=== PATIENT | female | born 1950 | race Caucasian/White ===

== ENCOUNTER 2017-03-03 14:58 | Emergency (ER) | payer OTHER ==
[2017-03-03 15:04] VITALS: BMI 26.1
--- NOTE | 2017-03-03 15:25 | PDOC ---
History of Present Illness - General Chief Complaint: Respiratory Stated Complaint: SOB Time Seen by Provider: 03/03/17 15:22 - History of Present Illness Initial Comments: 03/03/17 16:59 Ms. Anjana Candelario is a 66 yo female with a significant past medical history of HTN, DM, and Asthma who presents to the emergency department with a 2 week history of difficulty breathing with frequent cough and feeling like her "chest itches." She says she sometimes coughs of phlegm and endorses headache as well. The patient denies chest pain and dizziness. Denies fever, chills, nausea, vomit , diarrhea and constipation. Denies dysuria, frequency, urgency and hematuria. Allergies: NKDA Timing/Duration: unsure Past History - Past Medical History Allergies/Adverse Reactions: Allergies Allergy/AdvReac Type Severity Reaction Status Date / Time No Known Allergies Allergy Verified 03/03/17 15:04 Home Medications: Ambulatory Orders Albuterol Sulfate [Proair Hfa -] 1 - 2 inh PO QID 12/20/14 Aspirin [ASA -] 81 mg PO DAILY 12/20/14 Budesonide/Formeterol Fumarate [SYMBICORT 160/4.5mcg -] 1 inh PO BID 12/20/14 Esomeprazole Mag Trihydrate [Nexium] 40 mg PO DAILY 12/20/14 Losartan Potassium 50 mg PO DAILY 12/20/14 Montelukast Na [Singulair -] 10 mg PO HS 12/20/14 Pravastatin Sodium 20 mg PO DAILY 12/20/14 Asthma: Yes Diabetes: Yes HTN: Yes Hypercholesterolemia: Yes - Suicide/Smoking/Psychosocial Hx Smoking History: Never smoked Hx Alcohol Use: No Drug/Substance Use Hx: No Substance Use Type: None Review of Systems - Review of Systems Comments:: 03/03/17 16:59 GENERAL/CONSTITUTIONAL: No fever or chills. No weakness. HEAD, EYES, EARS, NOSE AND THROAT: No change in vision. No ear pain or discharge. No sore throat. CARDIOVASCULAR: +2 weeks of shortness of breath RESPIRATORY: +2 weeks of cough, no wheezing, or hemoptysis. GASTROINTESTINAL: No nausea, vomiting, diarrhea or constipation. GENITOURINARY: No dysuria, frequency, or change in urination. MUSCULOSKELETAL: No joint or muscle swelling or pain. No neck or back pain. SKIN: No rash NEUROLOGIC: No headache, vertigo, loss of consciousness, or change in strength/ sensation. ENDOCRINE: No increased thirst. No abnormal weight change HEMATOLOGIC/LYMPHATIC: No anemia, easy bleeding, or history of blood clots. ALLERGIC/IMMUNOLOGIC: No hives or skin allergy. *Physical Exam - Vital Signs Last Vital Signs Temp Pulse Resp BP Pulse Ox 98.4 F 90 20 143/77 97 03/03/17 15:00 03/03/17 15:00 03/03/17 15:00 03/03/17 15:00 03/03/17 15:00 - Physical Exam Comments: 03/03/17 16:59 GENERAL: Awake, alert, and fully oriented, in no acute distress HEAD: No signs of trauma, normocephalic, atraumatic EYES: PERRLA, EOMI, sclera anicteric, conjunctiva clear ENT: Auricles normal inspection, hearing grossly normal, nares patent, oropharynx clear without exudates. Moist mucosa NECK: Normal ROM, supple, no lymphadenopathy, JVD, or masses LUNGS: +Minimal dysphonia appreciated. No distress, speaks full sentences, clear to auscultation bilaterally HEART: Regular rate and rhythm, normal S1 and S2, no murmurs, rubs or gallops, peripheral pulses normal and equal bilaterally. ABDOMEN: Soft, nontender, normoactive bowel sounds. No guarding, no rebound. No masses EXTREMITIES: Normal inspection, Normal range of motion, no edema. No clubbing or cyanosis. NEUROLOGICAL: Cranial nerves II through XII grossly intact. Normal speech, normal gait, no focal sensorimotor deficits SKIN: Warm, Dry, normal turgor, no rashes or lesions noted. Medical Decision Making - Medical Decision Making 03/03/17 17:45 Patient presents with symptoms of 2 weeks of coughing and reports difficulty breathing. Unclear whether she was sent by respiratory or her PCP but patient presented with prescription from PCP: Dasilva for tensilon pearls, a z-pack and robitussen. Upon discussion with patient quickly apparent she is able to speak long sentences without any problems. Dry cough observed during exam. EKG negative - normal sinus rate/rhythm, normal access, normal interval. Chest x-ray negative for any fluid collection, pt found to have bronchitis. Treated patient with duoneb for symptomatic relief, will d/c to home with instructions to follow-up as needed with PCP. *DC/Admit/Observation/Transfer Diagnosis at time of Disposition: Bronchitis - Discharge Dispostion Disposition: HOME - Patient Instructions Printed Discharge Instructions: DI for Acute Bronchitis Print Language: SAMI
--- NOTE | 2017-03-03 16:12 | PDOC ---
Attending Attestation - HPI HPI: 03/03/17 17:37 Patient is a 66 year old female, with a significant past medical history of brain aneurysm(2005), subdural hematoma(2006), asthma, hypertension, hyperlipidemia, and diabetes, who presents to the emergency department complaining of sore throat, cough, and chest tightness for approximately 3 weeks. Patient reports visiting her PCP Dr. Dasilva earlier today, where she was prescribed antibiotics due to her recent history of cough productive of white/ yellow sputum. 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 Since then patient reports associated chest tightness, but denies any diaphoresis, palpitations, or lower extremity edema. Patient reports a headache, but denies any dizziness, fever, or chills. Patient denies any recent travel or sick contacts. Allergies: NKDA PCP: Dr. Dasilva Engraver Machine: Dr. Hardy - Medical Decision Making 03/03/17 17:37 Documentation prepared by Nurys Mo, acting as medical microbiologist for Vince Cho MD. <Nurys Mo - Last Filed: 03/03/17 17:37> - Resident Resident Name: Dejuan Gomez - ED Attending Attestation I have performed the following: I have examined & evaluated the patient, The case was reviewed & discussed with the resident, I agree w/resident's findings & plan, Exceptions are as noted - Physicial Exam PE: 03/03/17 17:48 Patient is awake and alert, afebrile, normotensive, with oxygen saturation of 97 % on room air; nc, atr; + b/l frontal sinus ttp perrla, eomi cta + disphonia; no stridor rrr no petechiae - Medical Decision Making 03/03/17 18:34 66-year-old female with history of hypertension, diabetes and asthma presents to the ER with signs and symptoms of acute bronchitis. On initial evaluation, patient is nontoxic appearing, with normal stable vital signs, without evidence of respiratory distress chest x-ray reveals no evidence of infiltrate or effusion. There is no evidence of cardiomegaly. Patient does display mild dysphonia but I do not suspect upper airway obstruction. Patient has already been prescribed a Z-Phil and anti-tussive meds by the PMD. Will advise outpatient follow-up with ENT as planned. Will discharge. <Vince Cho - Last Filed: 03/03/17 18:37>
[2017-03-03] MEDS ORDERED: ALBUTEROL SO4 2.5/IPRATROPIUM 0.5 INH SOL 3 ML VIAL.NEB. NEB ONE (17:15)
[2017-03-03 18:54] VITALS: BP 142/78; PULSE 78; TEMP 98.5
--- NOTE | 2017-03-04 14:11 | EKG ---
Test Reason : Blood Pressure : / mmHG Vent. Rate : 085 BPM Atrial Rate : 085 BPM P-R Int : 150 ms QRS Dur : 074 ms QT Int : 360 ms P-R-T Axes : 054 035 018 degrees QTc Int : 428 ms NORMAL SINUS RHYTHM WITH SINUS ARRHYTHMIA NONSPECIFIC ST ABNORMALITY ABNORMAL ECG WHEN COMPARED WITH ECG OF 20-DEC-2014 13:03, NO SIGNIFICANT CHANGE WAS FOUND Confirmed by MARCIA OSMAN MD ([id number]) on 03/04/2017 2:11:02 PM Referred By: Confirmed By:MARCIA OSMAN MD
== END 2017-03-03 18:54 | disposition home or self-care (01) ==
LOC: JER 14:58
PROC: 3E0F7GC Introduction of Other Therapeutic Substance into Respiratory Tract, Via Natural or Artificial Opening (ICD-10-PCS; principal; 2017-03-03)
DX: J20.9 Acute bronchitis, unspecified (principal); I10 Essential (primary) hypertension; E11.9 Type 2 diabetes mellitus without complications; E78.5 Hyperlipidemia, unspecified; J45.909 Unspecified asthma, uncomplicated; Z79.82 Long term (current) use of aspirin; Z86.79 Personal history of other diseases of the circulatory system
CPT/HCPCS: 71020-TC; 93005; 93010; 94640; 99282-25

== ENCOUNTER 2018-08-14 11:54 | Emergency (ER) | payer OTHER ==
[2018-08-14 12:06] VITALS: BP 143/76; PULSE 98; TEMP 98.8; BMI 25.8
--- NOTE | 2018-08-14 12:52 | PDOC ---
History of Present Illness - General Chief Complaint: Respiratory Stated Complaint: COLD SYMPTOMS Time Seen by Provider: 08/14/18 12:39 History Source: Patient, Family - History of Present Illness Timing/Duration: reports: other Past History - Past Medical History Allergies/Adverse Reactions: Allergies Allergy/AdvReac Type Severity Reaction Status Date / Time No Known Allergies Allergy Verified 08/14/18 12:06 Home Medications: Ambulatory Orders Albuterol Sulfate [Proair Hfa -] 1 - 2 inh PO QID 12/20/14 Aspirin [ASA -] 81 mg PO DAILY 12/20/14 Budesonide/Formeterol Fumarate [SYMBICORT 160/4.5mcg -] 1 inh PO BID 12/20/14 Esomeprazole Mag Trihydrate [Nexium] 40 mg PO DAILY 12/20/14 Losartan Potassium 50 mg PO DAILY 12/20/14 Montelukast Na [Singulair -] 10 mg PO HS 12/20/14 Pravastatin Sodium 20 mg PO DAILY 12/20/14 Guaifenesin AC [Robitussin AC -] 10 ml PO Q6H #118 ml MDD 4 doses 08/14/18 Asthma: Yes COPD: No Diabetes: Yes HTN: Yes Hypercholesterolemia: Yes - Suicide/Smoking/Psychosocial Hx Smoking History: Never smoked Have you smoked in the past 12 months: No Hx Alcohol Use: No Drug/Substance Use Hx: No Substance Use Type: None Review of Systems - Review of Systems Constitutional: No: Chills, Fever Respiratory: Yes: Cough. No: Shortness of Breath, Wheezing Cardiac (ROS): No: Chest Pain ABD/GI: No: Diarrhea, Nausea, Vomiting, Abdominal cramping : No: Dysuria Neurological: No: Dizziness *Physical Exam - Vital Signs Last Vital Signs Temp Pulse Resp BP Pulse Ox 98.8 F 98 H 18 143/76 98 08/14/18 12:02 08/14/18 12:02 08/14/18 12:02 08/14/18 12:02 08/14/18 12:02 - Physical Exam General Appearance: Yes: Appropriately Dressed. No: Apparent Distress HEENT: positive: Normal ENT Inspection, Normal Voice. negative: Scleral Icterus (R), Scleral Icterus (L) Neck: positive: Supple Respiratory/Chest: positive: Lungs Clear, Normal Breath Sounds. negative: Respiratory Distress Cardiovascular: positive: Regular Rate, S1, S2 Extremity: negative: Pedal Edema Integumentary: positive: Dry, Warm Neurologic: positive: Fully Oriented, Alert, Normal Mood/Affect Moderate Sedation - Procedure Monitoring Vital Signs: Procedure Monitoring Vital Signs Temperature 98.8 F 08/14/18 12:02 Pulse Rate 98 H 08/14/18 12:02 Respiratory Rate 18 08/14/18 12:02 Blood Pressure 143/76 08/14/18 12:02 O2 Sat by Pulse Oximetry (%) 98 08/14/18 12:02 Medical Decision Making - Medical Decision Making 08/14/18 12:50 67 yo F, HTN, HLD, NIDDM, brain aneurysm (s/p repair 2005), asthma, here w/ non- productive cough w/ HARTMAN, malaise and anorexia x 5 days. No sob, CP, edema, body aches, f/c. Seen by her PMD 5 days ago and prescribe tessalon w/ no relief of cough See exam Possible viral URI, unlikely flu Stable w/ clear chest/lungs -dose of guaifenesin/AC in ED -CXR r/o PNA 08/14/18 13:19 CXR neg for acute pathology. Pt stable for dc in care of family w/ continued PMD f/u *DC/Admit/Observation/Transfer Diagnosis at time of Disposition: Cough - Discharge Dispostion Disposition: HOME Condition at time of disposition: Good - Prescriptions Prescriptions: Guaifenesin AC [Robitussin AC -] 10 ml PO Q6H #118 ml MDD 4 doses - Referrals - Patient Instructions Printed Discharge Instructions: Cough Additional Instructions: You most likely have a viral cold Your CXR did not show any pneumonia Rest, drink fluids and take cough meds as directed Please follow up with your PMD this week - Post Discharge Activity
[2018-08-14] MEDS ORDERED: ACETAMINOPHEN 325 MG TABLET (FP) PO ONE (12:54)
[2018-08-14] MEDS ORDERED: guaiFENesin/CODEINE 10 ML UNIT-DOSE CUPS PO ONE (12:54)
[2018-08-14] MEDS ORDERED: guaiFENesin 200 MG/10 ML 10 ML UNIT-DOSE CUPS ONE (13:13)
[2018-08-14] MEDS ORDERED: ACETAMINOPHEN 325 MG TABLET (FP) ONE (13:14)
== END 2018-08-14 13:41 | disposition home or self-care (01) ==
LOC: JER 11:54
DX: J00 Acute nasopharyngitis [common cold] (principal); B97.89 Other viral agents as the cause of diseases classified elsewhere; I10 Essential (primary) hypertension; E11.9 Type 2 diabetes mellitus without complications; J45.909 Unspecified asthma, uncomplicated; E78.00 Pure hypercholesterolemia, unspecified
CPT/HCPCS: 71046-TC-FY; 99281-25

== ENCOUNTER 2020-08-08 16:38 | Emergency (ER) | payer OTHER ==
[2020-08-08 17:51] VITALS: BP 140/73; PULSE 75; TEMP 99.5; BMI 29.0
[2020-08-08] MEDS ORDERED: ONDANSETRON *ODT* 4 MG TABLET SL ONE (18:15)
[2020-08-08] MEDS ORDERED: MECLIZINE HCL 25 MG TABLET (FP) PO ONE (18:15)
[2020-08-08] MEDS ORDERED: MECLIZINE HCL 25 MG TABLET (FP) ONE (18:22)
[2020-08-08] MEDS ORDERED: ONDANSETRON *ODT* 4 MG TABLET ONE (18:22)
[2020-08-08] MEDS ORDERED: METOCLOPRAMIDE HCL 10 MG TABLET (FP) PO ONE (18:29)
[2020-08-08] MEDS ORDERED: LACTATED RINGERS SOLUTION 1000 ML INFUS.BAG IV ONE (18:30)
[2020-08-08] MEDS ORDERED: METOCLOPRAMIDE HCL INJECTION 10 MG/2 ML VIAL IVPUSH ONE (18:33)
[2020-08-08] MEDS ORDERED: METOCLOPRAMIDE HCL INJECTION 10 MG/2 ML VIAL ONE (18:34)
[2020-08-08 18:47] LABS: BASO % 0.5 % (0-2.0); EOS % 5.3 % (0-4.5); HEMATOCRIT 39.8 % (32.4-45.2); HEMOGLOBIN 13.5 GM/dL (10.7-15.3); MCH 32.3 pg (25.7-33.7); MEAN PLT VOLUME 10.5 fl (7.5-11.1); MONO % 8.4 % (3.8-10.2); NEUT % 69.8 % (42.8-82.8); PLATELET COUNT 188 K/MM3 (134-434); RBC 4.19 M/mm3 (3.60-5.2); RDW 12.5 % (11.6-15.6); WHITE BLOOD COUNT 9.1 K/mm3 (4.0-10.0)
[2020-08-08 18:52] LABS: INR 1.16 (0.83-1.09); PROTHROMBIN TIME (PATIENT) 14.2 SEC (9.7-13.0)
[2020-08-08 18:55] LABS: ACTIVATED PTT 28.4 SECONDS (25.2-36.5)
[2020-08-08 18:59] LABS: CHLORIDE 104 mmol/L (98-107); POTASSIUM 4.3 mmol/L (3.5-5.1); SODIUM 139 mmol/L (136-145)
[2020-08-08 19:01] LABS: CALCIUM 9.7 mg/dL (8.5-10.1)
[2020-08-08 19:02] LABS: ALBUMIN 3.9 g/dl (3.4-5.0); ANION GAP 7 MMOL/L (8-16); BLOOD UREA NITROGEN 10.1 mg/dL (7-18); CO2 28 mmol/L (21-32); GLUCOSE,RANDOM 255 mg/dL (74-106)
[2020-08-08 19:05] LABS: SGOT/AST 114 U/L (15-37); SGPT/ALT 75 U/L (13-61)
[2020-08-08 19:06] LABS: CREATININE 0.8 mg/dL (0.55-1.3)
[2020-08-08 19:07] LABS: BILIRUBIN,TOTAL 2.1 mg/dL (0.2-1); TOT PROT 7.4 g/dl (6.4-8.2)
[2020-08-08 19:08] LABS: ALK PHOS 133 U/L (45-117)
[2020-08-08 20:36] LABS: PH,URINE 5.5 (5.0-8.0); URINE APPEARANCE CLEAR; URINE BILIRUBIN NEGATIVE (NEGATIVE); URINE COLOR YELLOW; URINE GLUCOSE (UA) 3+ (NEGATIVE); URINE KETONE TRACE (NEGATIVE); URINE LEUK ESTERASE NEGATIVE (NEGATIVE); URINE NITRITE NEGATIVE (NEGATIVE); URINE PROTEIN NEGATIVE (NEGATIVE)
== END 2020-08-08 22:10 | disposition home or self-care (01) ==
LOC: JER 16:38
PROC: 3E033GC Introduction of Other Therapeutic Substance into Peripheral Vein, Percutaneous Approach (ICD-10-PCS; principal; 2020-08-08)
DX: R42 Dizziness and giddiness (principal); R11.0 Nausea
CPT/HCPCS: 36415; 70450-TC; 72125-TC; 76705-TC; 80053; 81003; 84484; 85025; 85610; 85730; 87086; 87804; 93005; 93010; 99284-25; C9803; U0003

== ENCOUNTER 2021-02-19 07:53 | Emergency (ER) | payer OTHER ==
[2021-02-19 08:01] VITALS: BP 140/69; PULSE 80; TEMP 97.8; BMI 25.8
== END 2021-02-19 08:50 | disposition home or self-care (01) ==
LOC: JERFT 07:53
DX: L50.9 Urticaria, unspecified (principal)
CPT/HCPCS: 99281-25

== ENCOUNTER 2021-05-14 13:05 | Emergency (ER) | payer OTHER ==
[2021-05-14 13:39] VITALS: BMI 24.1
[2021-05-14 15:35] LABS: BASO % 0.9 % (0-2.0); EOS % 1.9 % (0-4.5); HEMATOCRIT 40.8 % (32.4-45.2); MCH 31.9 pg (25.7-33.7); MCHC 34.3 g/dl (32.0-36.0); MEAN CELL VOLUME 93.2 fl (80-96); MEAN PLT VOLUME 9.6 fl (7.5-11.1); MONO % 6.3 % (3.8-10.2); NEUT % 50.9 % (42.8-82.8); PLATELET COUNT 204 10^3/uL (134-434); RBC 4.38 M/mm3 (3.60-5.2); RDW 12.3 % (11.6-15.6); WHITE BLOOD COUNT 9.2 K/mm3 (4.0-10.0)
[2021-05-14 15:52] LABS: CHLORIDE 108 mmol/L (98-107); SODIUM 141 mmol/L (136-145)
[2021-05-14 15:54] LABS: CALCIUM 9.3 mg/dL (8.5-10.1)
[2021-05-14 15:55] LABS: ALBUMIN 3.7 g/dl (3.4-5.0); ANION GAP 7 MMOL/L (8-16); BLOOD UREA NITROGEN 14.7 mg/dL (7-18); CO2 27 mmol/L (21-32); GLUCOSE,RANDOM 127 mg/dL (74-106)
[2021-05-14 15:58] LABS: CREATININE 0.7 mg/dL (0.55-1.3); SGOT/AST 31 U/L (15-37); SGPT/ALT 30 U/L (13-61)
[2021-05-14 15:59] LABS: BILIRUBIN,TOTAL 1.1 mg/dL (0.2-1); TOT PROT 7.8 g/dl (6.4-8.2)
[2021-05-14 16:01] LABS: ALK PHOS 99 U/L (45-117)
[2021-05-14 16:05] LABS: EPI CELLS 7 /uL (0-25.1); HYALINE CASTS 1 /uL (0-3.1); URINE APPEARANCE CLEAR; URINE BACTERIA 78 /uL (0-1359); URINE BILIRUBIN NEGATIVE (NEGATIVE); URINE COLOR YELLOW; URINE GLUCOSE (UA) TRACE (NEGATIVE); URINE KETONE NEGATIVE (NEGATIVE); URINE LEUK ESTERASE TRACE (NEGATIVE); URINE NITRITE NEGATIVE (NEGATIVE); URINE PROTEIN TRACE (NEGATIVE); URINE RBC 5 /uL (0-23.9); URINE WBC 18 /uL (0-25.8)
[2021-05-14 16:44] LABS: VENOUS BASE EXCESS -0.5 mmol/L (-2-2); VENOUS O2 SATURATION 78.3 % (70-80); VENOUS PCO2 37.4 mmHg (38-52); VENOUS PH 7.418 (7.310-7.410)
[2021-05-14] MEDS ORDERED: FLUCONAZOLE 50 MG TABLET PO ONE (17:30)
[2021-05-14 17:50] VITALS: BP 138/89; PULSE 78; TEMP 98.9
[2021-05-14] MEDS ORDERED: FLUCONAZOLE 150 MG TABLET PO ONE (17:51)
== END 2021-05-14 18:58 | disposition home or self-care (01) ==
LOC: JER 13:05
DX: B37.9 Candidiasis, unspecified (principal); R07.9 Chest pain, unspecified
CPT/HCPCS: 36415; 71046-TC-FY; 80053; 81003; 82550; 82803; 84484; 85025; 85379; 87086; 93005; 93010; 99285-25; C9803; U0003; U0005

== ENCOUNTER 2021-12-15 21:15 | Emergency (ER) | payer OTHER ==
[2021-12-15 21:25] VITALS: BP 182/87; PULSE 74; TEMP 98.2; BMI 26.2
[2021-12-15] MEDS ORDERED: ACETAMINOPHEN 1000 MG/100 ML BAG IVPB ONE (22:57)
[2021-12-15] MEDS ORDERED: ACETAMINOPHEN INJECTION 100 ML IVPB ONE (23:13)
[2021-12-15 23:41] LABS: BASO % 0.9 % (0-2.0); HEMATOCRIT 36.9 % (32.4-45.2); LYMPH % 41.2 % (8-40); MCH 32.8 pg (25.7-33.7); MCHC 35.2 g/dl (32.0-36.0); MEAN CELL VOLUME 93.3 fl (80-96); MEAN PLT VOLUME 9.3 fl (7.5-11.1); MONO % 7.4 % (3.8-10.2); NEUT % 45.5 % (42.8-82.8); PLATELET COUNT 209 10^3/uL (134-434); RBC 3.96 M/mm3 (3.60-5.2); RDW 12.4 % (11.6-15.6); WHITE BLOOD COUNT 7.9 K/mm3 (4.0-10.0)
[2021-12-16 00:15] LABS: CALCIUM 9.5 mg/dL (8.5-10.1)
[2021-12-16 00:16] LABS: ALBUMIN 3.8 g/dl (3.4-5.0); BLOOD UREA NITROGEN 5.7 mg/dL (7-18)
[2021-12-16 00:19] LABS: CREATININE 0.8 mg/dL (0.55-1.3)
[2021-12-16 00:20] LABS: BILIRUBIN,TOTAL 0.8 mg/dL (0.2-1); TOT PROT 7.1 g/dl (6.4-8.2)
== END 2021-12-16 02:47 | disposition home or self-care (01) ==
LOC: JER 21:15
PROC: 3E0333Z Introduction of Anti-inflammatory into Peripheral Vein, Percutaneous Approach (ICD-10-PCS; principal; 2021-12-15)
DX: R51.9 Headache, unspecified (principal)
CPT/HCPCS: 36415; 70450-TC; 70496-TC; 80053; 85025; 93005; 93010; 99285-25; C9803-CS; Q9967; U0003; U0005

== ENCOUNTER 2022-04-30 16:13 | Observation (INO) | payer OTHER ==
[2022-04-30 16:26] VITALS: BMI 24.9
[2022-04-30] MEDS ORDERED: SODIUM CHLORIDE 0.9% 1000 ML INFUS.BAG IV ONE (18:09)
[2022-04-30] MEDS ORDERED: ACETAMINOPHEN 500 MG TABLET (FP) PO ONE (18:09)
[2022-04-30] MEDS ORDERED: MECLIZINE HCL 25 MG TABLET (FP) PO ONE (19:15)
[2022-04-30 19:48] LABS: BASO % 1.1 % (0-2.0); EOS % 1.1 % (0-4.5); HEMATOCRIT 43.7 % (32.4-45.2); HEMOGLOBIN 14.8 GM/dL (10.7-15.3); MCH 31.6 pg (25.7-33.7); MCHC 33.8 g/dl (32.0-36.0); MEAN CELL VOLUME 93.4 fl (80-96); MEAN PLT VOLUME 10.6 fl (7.5-11.1); MONO % 10.4 % (3.8-10.2); NEUT % 60.4 % (42.8-82.8); PLATELET COUNT 217 10^3/uL (134-434); RBC 4.68 M/mm3 (3.60-5.2); RDW 12.7 % (11.6-15.6)
[2022-04-30 20:08] LABS: CHLORIDE 99 mmol/L (98-107); SODIUM 136 mmol/L (136-145)
[2022-04-30 20:10] LABS: ALBUMIN 4.1 g/dl (3.4-5.0); ANION GAP 10 MMOL/L (8-16); BLOOD UREA NITROGEN 18.9 mg/dL (7-18); CALCIUM 9.2 mg/dL (8.5-10.1); CO2 26 mmol/L (21-32)
[2022-04-30 20:13] LABS: CREATININE 1.2 mg/dL (0.55-1.3); SGPT/ALT 53 U/L (13-61)
[2022-04-30 20:14] LABS: SGOT/AST 114 U/L (15-37)
[2022-04-30 20:15] LABS: BILIRUBIN,TOTAL 1.4 mg/dL (0.2-1)
[2022-04-30 20:16] LABS: ALK PHOS 105 U/L (45-117)
[2022-04-30 20:22] LABS: GLUCOSE,RANDOM 443 mg/dL (74-106)
[2022-05-01] MEDS ORDERED: LACTATED RINGERS SOLUTION 1,000 ML/1,000 ML INFUS.BAG IV SCH (02:45)
[2022-05-01] MEDS ORDERED: ACETAMINOPHEN 325 MG TABLET (FP) PO PRN ×2 (02:55→16:11)
[2022-05-01] MEDS ORDERED: ALBUTEROL SO4 2.5/IPRATROPIUM 0.5 INH SOL 3 ML VIAL.NEB. NEB ONE (03:46)
[2022-05-01] MEDS: ALBUTEROL SO4 2.5/IPRATROPIUM 0.5 INH SOL 3 ML VIAL.NEB. NEB SCH ×2 (03:54→20:18)
[2022-05-01] MEDS: INSULIN SLIDING SCALE (NOVOLOG) 1 VIAL SQ SCH ×4 (08:12→21:11)
[2022-05-01 08:51] LABS: BASO % 0.7 % (0-2.0); HEMATOCRIT 39.8 % (32.4-45.2); HEMOGLOBIN 13.9 GM/dL (10.7-15.3); LYMPH % 38.3 % (8-40); MCH 32.2 pg (25.7-33.7); MCHC 34.9 g/dl (32.0-36.0); MEAN CELL VOLUME 92.2 fl (80-96); PLATELET COUNT 174 10^3/uL (134-434); RBC 4.32 M/mm3 (3.60-5.2); RDW 12.1 % (11.6-15.6); WHITE BLOOD COUNT 6.2 K/mm3 (4.0-10.0)
[2022-05-01] MEDS ORDERED: LOSARTAN POTASSIUM 50 MG TABLET ONE (08:53)
[2022-05-01] MEDS ORDERED: amLODIPine BESYLATE 5 MG TABLET (FP) ONE (08:53)
[2022-05-01] MEDS ORDERED: ENOXAPARIN NA (PORCINE) 40 MG/0.4 ML DISP.SYRIN SQ ONE (08:54)
[2022-05-01 09:13] LABS: ALBUMIN 3.7 g/dl (3.4-5.0); BLOOD UREA NITROGEN 15.1 mg/dL (7-18); CALCIUM 8.9 mg/dL (8.5-10.1); MAGNESIUM 1.8 mg/dL (1.8-2.4)
[2022-05-01 09:16] LABS: CREATININE 0.8 mg/dL (0.55-1.3); PHOSPHOROUS 3.1 mg/dL (2.5-4.9)
[2022-05-01 09:18] LABS: BILIRUBIN,TOTAL 1.5 mg/dL (0.2-1); TOT PROT 7.2 g/dl (6.4-8.2)
[2022-05-01] MEDS ORDERED: OSELTAMIVIR PHOSPHATE 30 MG CAPSULE PO SCH (10:00)
[2022-05-01] MEDS ORDERED: PATIENT'S OWN MEDICATION (NON-FORMULARY) (Linaclotide [Linzess] 145 MCG Capsule) PO SCH (10:00)
[2022-05-01] MEDS: amLODIPine BESYLATE 5 MG TABLET (FP) PO SCH (10:57)
[2022-05-01] MEDS: ENOXAPARIN NA (PORCINE) 40 MG/0.4 ML DISP.SYRIN SQ SCH (10:57)
[2022-05-01] MEDS: LOSARTAN POTASSIUM 50 MG TABLET PO SCH (10:57)
[2022-05-01] MEDS ORDERED: ACETAMINOPHEN 325 MG TABLET (FP) ONE ×2 (11:15→11:17)
[2022-05-01] MEDS ORDERED: MECLIZINE HCL 25 MG TABLET (FP) PO PRN (12:56)
[2022-05-01] MEDS: SODIUM CHLORIDE 1,000 ML IV SCH (16:51)
[2022-05-01] MEDS: OSELTAMIVIR PHOSPHATE 75 MG CAPSULE PO SCH (21:10)
[2022-05-01] MEDS ORDERED: MONTELUKAST NA 10 MG TABLET PO SCH (22:00)
[2022-05-01] MEDS ORDERED: ATORVASTATIN CA 40 MG TABLET (FP) PO SCH (22:00)
[2022-05-02] MEDS: ALBUTEROL SO4 2.5/IPRATROPIUM 0.5 INH SOL 3 ML VIAL.NEB. NEB SCH ×4 (00:26→12:05)
[2022-05-02] MEDS: SODIUM CHLORIDE 1,000 ML IV SCH (03:00)
[2022-05-02] MEDS: INSULIN SLIDING SCALE (NOVOLOG) 1 VIAL SQ SCH ×2 (06:35→11:19)
[2022-05-02 09:55] LABS: HEMATOCRIT 39.7 % (32.4-45.2); HEMOGLOBIN 13.4 GM/dL (10.7-15.3); MCH 31.2 pg (25.7-33.7); MCHC 33.7 g/dl (32.0-36.0); MEAN CELL VOLUME 92.7 fl (80-96); MEAN PLT VOLUME 10.6 fl (7.5-11.1); PLATELET COUNT 188 10^3/uL (134-434); RBC 4.29 M/mm3 (3.60-5.2); RDW 12.2 % (11.6-15.6); WHITE BLOOD COUNT 6.8 K/mm3 (4.0-10.0)
[2022-05-02 10:20] LABS: ALBUMIN 3.3 g/dl (3.4-5.0); BLOOD UREA NITROGEN 11.3 mg/dL (7-18); MAGNESIUM 1.9 mg/dL (1.8-2.4)
[2022-05-02 10:24] LABS: BILIRUBIN,TOTAL 1.2 mg/dL (0.2-1); CREATININE 0.8 mg/dL (0.55-1.3)
[2022-05-02 10:25] LABS: TOT PROT 6.5 g/dl (6.4-8.2)
[2022-05-02] MEDS: LOSARTAN POTASSIUM 50 MG TABLET PO SCH (10:45)
[2022-05-02] MEDS: OSELTAMIVIR PHOSPHATE 75 MG CAPSULE PO SCH (10:46)
[2022-05-02] MEDS: ENOXAPARIN NA (PORCINE) 40 MG/0.4 ML DISP.SYRIN SQ SCH (10:46)
[2022-05-02] MEDS: amLODIPine BESYLATE 5 MG TABLET (FP) PO SCH (10:46)
[2022-05-02 13:56] VITALS: BP 113/65; PULSE 90; RESP 20; TEMP 99.7
== END 2022-05-02 14:45 | disposition home or self-care (01) ==
LOC: JER 16:13 → JERBED 22:31 → J4S 05-01 14:50
PROVIDERS: ADMIT Internal Medicine; ATTEND Internal Medicine
PROC: 3E0F7GC Introduction of Other Therapeutic Substance into Respiratory Tract, Via Natural or Artificial Opening (ICD-10-PCS; principal; 2022-04-30)
PROC: 3E013VG Introduction of Insulin into Subcutaneous Tissue, Percutaneous Approach (ICD-10-PCS; 2022-04-30)
PROC: 3E023GC Introduction of Other Therapeutic Substance into Muscle, Percutaneous Approach (ICD-10-PCS; 2022-04-30)
PROC: 3E0337Z Introduction of Electrolytic and Water Balance Substance into Peripheral Vein, Percutaneous Approach (ICD-10-PCS; 2022-04-30)
DX: J11.1 Influenza due to unidentified influenza virus with other respiratory manifestations (principal); R42 Dizziness and giddiness; E11.9 Type 2 diabetes mellitus without complications; I10 Essential (primary) hypertension; E78.5 Hyperlipidemia, unspecified; I67.1 Cerebral aneurysm, nonruptured; F02.80 Dementia in other diseases classified elsewhere, unspecified severity, without behavioral disturbance, psychotic disturbance, mood disturbance, and anxiety; R74.01 Elevation of levels of liver transaminase levels; G30.1 Alzheimer's disease with late onset; Z29.8 Encounter for other specified prophylactic measures
CPT/HCPCS: 0241U-QW; 36415; 70450-TC; 71046-TC-FY; 80053; 82962; 83036; 83735; 84100; 84443; 84484; 85025; 85027; 93005; 93010; 94640; 94761; 96360; 96372; 99285-25; G0378